=== PATIENT | male | born 1995 | race Asian ===

== ENCOUNTER 2024-04-04 14:23 | Outpatient (AMB) | payer OTHER, SELFPAY ==
--- NOTE | 2024-04-04 14:37 | MHC.PC.OV ---
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 ?? Prior PCP:? No recent PCP Acute issue(s):? Est Care ?? PMHx:? Denies SurgHx:?None FHx:? Mom Healthy Dad Healthy SocHx:? Nonsmoker, EtOH: None. No drugs PFSH Social History (Updated 04/04/24 @ 14:42 by Cali Tolbert [facility]) Housing: House Patient Tobacco Use Status: Never used Tobacco e-Cigarette/Vaping Use: Never Used Second Hand Smoke Exposure: No Use of substances other than those prescribed or required for medical reasons: No service: No Current occupational status: employed Current occupation: [employer] Current occupational exposures/hazards: No Cognitive needs: No Hearing needs: No Vision needs: No Questionnaire PHQ-9 Over the last 2 weeks, how often have you been bothered by any of the following problems? 1. Little interest or pleasure in doing things: not at all 2. Feeling down, depressed, or hopeless: not at all 3. Trouble falling or staying asleep, or sleeping too much: not at all 4. Feeling tired or having little energy: not at all 5. Poor appetite or overeating: not at all 6. Feeling bad about yourself - or that you are a failure or have let yourself or your family down: not at all 7. Trouble concentrating on things, such as reading the newspaper or watching television: not at all 8. Moving or speaking so slowly that other people could have noticed. Or the opposite - being so fidgety or restless that you have been moving around a lot more than usual: not at all 9. Thoughts that you would be better off or of hurting yourself in some way: not at all Total score: 0 Depression Screening Interpretation: Negative Depression Screening Done: Yes 20320 - PHQ-9 Billing: Yes Source: Developed by Drs. Ruel Davidson, Lavinia Galan, Carter Hu and colleagues, with an educational isidro from [employer]. Thrive Questionnaire Date Thrive assessed: 04/04/24 I am a: Patient What is your living situation today?: I have a steady place to live Within the past 12 months, did the food you bought not last and you didn't have the money to get more?: Never true Within the past 12 months, did you worry whether your food would run out before you got money to buy more?: Never true Do you have trouble paying for medicines?: No Do you have trouble getting transportation to medical appointments?: No Do you have trouble paying your heating and electricity bill?: No Do you have trouble taking care of your child, family member or friend?: No Do you have trouble with day-to-day activities such as bathing, preparing meals, shopping, managing finances, etc.?: No Are you currently unemployed and looking for a job?: No Are you interested in more education?: No Please select the resources that you would like help with: None Currently or been in a relationship where the following occur: No concerns reported THRIVE Score: 0 AUDIT C Alcohol Use Questionnaire (AUDIT-C) 1. How often do you have a drink containing alcohol?: Never 3. How often do you have six or more drinks on one occasion?: Never Total Score: 0 ROB-7 AMB Questionnaire ROB-7 Date ROB - 7 assessed: 04/04/24 Feeling nervous, anxious, or on edge: 0 = Not at all Not being able to stop or control worryin = Not at all Worrying too much about different things: 0 = Not at all Trouble relaxin = Not at all Being so restless that it is hard to sit still: 0 = Not at all Becoming easily annoyed or irritable: 0 = Not at all Feeling afraid as if something awful might happen: 0 = Not at all Total ROB-7 score (0-4 normal; 5-9 mild; 10-14 moderate; 15-21 severe): 0 Source: Developed by Drs. Ruel Davidson, Lavinia Galan, Carter Hu and colleagues, with an educational isidro from [employer]. ROB-7 Assessment Billing ROB-7 Assessment Tool: ROB-7 Assessment 47597 Review of Systems Const Denies chills, Denies fatigue, Denies fever(s), Denies headache(s) and Denies weakness Eyes Denies change in vision ENT Denies dizziness and Denies headache(s) Card Denies chest pain, Denies lightheadedness, Denies dyspnea and Denies other (Palpitations) Resp Denies cough, Denies dyspnea, Denies wheezing and Denies other ( shortness of breath) GI Denies abdominal pain, Denies melena, Denies hematochezia, Denies change in bowel habits, Denies dyspepsia and Denies nausea Denies hematuria and Denies dysuria Musc Denies numbness and Denies tingling Skin/Breast Denies rash, Denies unusual bruising and Denies wounds Neuro Denies dizziness, Denies headache(s), Denies numbness, Denies Sensory deficit (Neuro), Denies tingling, Denies paresthesias and Denies weakness Psych Denies anxiety and Denies depression Endo Denies fatigue Bob/Lymph Denies easy bleeding and Denies easy bruising Aller/Immun Denies wheezing Physical exam (Primary Care) Vital Signs: Last Vital Signs Pulse 67 04/04/24 14:43 Resp 16 04/04/24 14:43 BP 110/70 04/04/24 14:43 Pulse Ox 98 04/04/24 14:43 Oxygen Delivery Method Room Air 04/04/24 14:43 BMI result Body Mass Index 26.7 Tobacco/Smoking Status: Tobacco use Status Tobacco use date assessed 04/04/24 04/04/24 14:46 Patient Tobacco Use Status Never used Tobacco 04/04/24 14:46 e-Cigarette/Vaping Use Never Used 04/04/24 14:46 PHQ-9: PHQ-9 Score PHQ-9: Total score 0 04/04/24 14:52 Depression Screening Interpretation: Negative Thrive Assessment: Date of Thrive Assessment Date Thrive assessed 04/04/24 04/04/24 14:46 Currently or been in a relationship where the following occur: No concerns reported Const General: no acute distress and well developed Nutritional Appearance: well nourished Orientation/consciousness: patient oriented x3 [facility] Head: Yes normocephalic and Yes atraumatic Ears: hearing grossly normal bilaterally and TM's normal bilaterally General nose exam: Normal external nose present and Normal nares present Mouth: Normal oral and palatal mucosa present and moist mucous membranes Teeth and gingiva: dentition normal Throat: Yes posterior oropharynx normal Eyes General: appearance normal, both eyes and all related structures Pupils: Equal, round and reactive pupils present EOM: EOMs intact bilaterally Neck Neck: Yes normal visual inspection, Yes no lymphadenopathy and Yes trachea midline Thyroid: Thyroid normal Carotids: no bruits Lymphatic: no lymphadenopathy noted Chest Chest palpation & inspection: normal inspection of the chest Resp Effort & Inspection: normal respiratory effort Auscultation: clear to auscultation bilaterally Cardio Rate: regular rate Rhythm: regular rhythm Heart sounds: S1 normal heart sound present, S2 normal heart sound present, no gallops, no murmurs and no rubs Bruits: no abdominal aortic bruits and no carotid bruits GI Palpation (GI): No Abdominal aortic bruit present, Soft to palpation, nontender, No hepatosplenomegaly present and No Rebound tenderness present Auscultation: normal bowel sounds General: Yes no CVA tenderness Back/Spine/Pelvis Back: no CVA tenderness Cervical Spine: cervical ROM normal and No Cervical spine tenderness Thoracic/Lumbar Spine: thoraco-lumbar ROM normal, No pain with thoraco-lumbar ROM, No thoracic spinal tenderness and No lumbar spinal tenderness Skin Lesions: no lesions Rashes: no rashes Trauma: no lacerations or abrasions Wounds: no wounds Nails: normal Neuro General: patient oriented x3 and gait normal Cranial nerves: Yes Equal, round and reactive pupils present Cognition (Neuro): normal cognition Gait exam (Neuro): Normal gait present Motor exam (neuro): 5/5 motor strength present throughout Sensory Exam: No Sensory deficit (Neuro) Deep tendon reflexes (DTR's): Right patellar reflex intensity grade: 2+ and Left patellar reflex intensity grade: 2+ Extrem General: Yes normal to inspection and No edema Psych Appearance: grossly normal Affect: normal affect Attitude: cooperative Thought process: Normal thought process present Coding Level of Care Code New Pt Level 3 (79620) Est Pt Prev Care 18-39y(96873) Diagnoses Adult general medical examination Z00.00 Additional Codes ROB-7 Assessment Billing - ROB-7 Assessment Tool: ROB-7 Assessment 41871 ([id number]) PHQ-9 - 49895 - PHQ-9 Billing: Yes ([id number]) Assessment & Plan Assessment & Plan (1) Adult general medical examination: Code(s): Z00.00 - Encounter for general adult medical examination without abnormal findings Category: Medical Plan: 28-year-old?male?presents?as?new?patient?for?complete?physical?exam Exam?all?within?normal?limits Encouraged?healthy?diet?with?active?lifestyle?and?plenty?of?exercise Orders: Orders Microalbumin, Random (w Creat) Today I10 - Essential (primary) hypertension TSH reflex Free T4 Today Z00.00 - Encounter for general adult medical examination without abnormal findings UA and rflx microscopic Today Z00.00 - Encounter for general adult medical examination without abnormal findings Hepatitis B,C Profile Today Z11.3 - Encounter for screening for infections with a predominantly sexual mode of transmission Syphilis Screen Today Z11.3 - Encounter for screening for infections with a predominantly sexual mode of transmission Comprehensive [place]. Panel Fast Today Z00.00 - Encounter for general adult medical examination without abnormal findings Lipid Panel Today Z00.00 - Encounter for general adult medical examination without abnormal findings CT NG by PCR Today Z11.3 - Encounter for screening for infections with a predominantly sexual mode of transmission HIV Ab/Ag Today Z11.3 - Encounter for screening for infections with a predominantly sexual mode of transmission
[2024-04-04 14:43] VITALS: BP 110/70; PULSE 67; RESP 16; O2SAT 98; BMI 26.7
== END 2024-04-04 15:11 | disposition home or self-care (01) ==
PROVIDERS: PCP Family Medicine; Visit Provider Family Medicine
DX: Z00.00 Encounter for general adult medical examination without abnormal findings (principal)

== ENCOUNTER → 2024-04-04 14:23 | Outpatient (BNVA) | payer OTHER, SELFPAY | PROVIDERS: PCP Family Medicine; Visit Provider Family Medicine | DX: Z00.00 Encounter for general adult medical examination without abnormal findings (principal) | CPT/HCPCS: 96127 ==

== ENCOUNTER 2024-04-05 15:05 | Outpatient (REF) | payer OTHER, SELFPAY ==
[2024-04-05 18:01] LABS: Appearance Urine Clear; Color Urine Yellow; Glucose Urine UA Negative (Negative); Leukocyte Esterase Urine Negative (Negative); Nitrite Urine Negative (Negative); PH 6.5 (5.0-9.0); Specific Gravity - Urine <= 1.005 (1.005-1.025); Urine Blood Negative (Negative); Urine Ketones Negative (Negative); Urine Protein Negative (Neg-Trace)
[2024-04-05 18:15] LABS: Alanine Aminotransferase 38 U/L (0-40); Albumin Level 4.6 g/dL (3.5-5.0); Alkaline Phosphatase 56 U/L (39-117); Anion Gap 9 (12-20); Aspartate Amino Transferase 37 U/L (5-37); Bilirubin Total 1.6 mg/dL (0.0-1.0); Blood Urea Nitrogen 9 mg/dL (9-16); Calcium 9.2 mg/dL (8.4-10.2); Carbon Dioxide 27 mmol/L (22-29); Chloride 103 mmol/L (96-108); Cholesterol 161 mg/dL (<200); Estimated Glomerular Filt Rate > 60; Glucose Fasting 93 mg/dL (60-99); HDL Cholesterol 53 mg/dL (>40); LDL Cholesterol Calculated 96 mg/dL (<100); Potassium 3.8 mmol/L (3.3-5.1); Sodium 135 mmol/L (135-145); Total Protein 7.1 g/dL (6.5-8.0); Triglycerides 64 mg/dL (<150)
[2024-04-05 18:21] LABS: Microalbumin Urine < 5.0 mg/L
[2024-04-05 18:29] LABS: TSH reflex Free T4 1.09 uIU/mL (0.32-4.0)
[2024-04-06 08:21] LABS: HBS Num1 0.18 mIU/mL (0-7.99); HBc Num1 0.09 S/CO (0.00-0.79); HBsAGNum1 0.53 S/CO (0.00-0.99); HIV AB/AG Nonreactive (Nonreactive); HIV Num 1 0.08 S/CO (0.00-0.99); Hepatitis B Core Antibody Nonreactive (Nonreactive); Hepatitis B Surface Antigen Negative (Negative); ~HepC Num1 0.11 S/CO (0.00-0.79); ~Hepatitis B Surface Antibody NONREACTIVE (Nonreactive); ~Hepatitis C Antibody Nonreactive (Nonreactive)
[2024-04-06 08:36] LABS: Syphilis Screen Nonreactive (Nonreactive)
== END 2024-04-05 15:06 | disposition home or self-care (01) ==
LOC: HO.WFDLDS 15:05
PROVIDERS: Visit Provider Family Medicine
DX: Z00.00 Encounter for general adult medical examination without abnormal findings (principal); I10 Essential (primary) hypertension; Z11.3 Encounter for screening for infections with a predominantly sexual mode of transmission
CPT/HCPCS: 36415; 80053; 80061; 81003; 82570; 84443; 86704; 86706; 86780; 86803; 87340; 87389

== ENCOUNTER 2024-05-05 13:22 | Outpatient (REF) | payer OTHER, SELFPAY ==
[2024-05-05 19:02] LABS: Influenza A PCR NEGATIVE (Negative); Influenza B PCR NEGATIVE (Negative); Resp Syncy Virus RNA Qual PCR NEGATIVE (Negative); SARS COV2 PCR INHOUSE NEGATIVE (Negative)
== END 2024-05-05 13:23 | disposition home or self-care (01) ==
LOC: HO.LAB 13:22
PROVIDERS: PCP Family Medicine; Visit Provider Family Medicine
DX: J40 Bronchitis, not specified as acute or chronic (principal); B34.9 Viral infection, unspecified
CPT/HCPCS: 0241U

== ENCOUNTER 2024-05-05 13:22 | Outpatient (AMB) | payer OTHER, SELFPAY ==
--- NOTE | 2024-05-05 13:32 | MHC.PC.OV ---
Vital Signs 05/05/24 13:34 Height 5 ft 10 in Weight 185 lb 4 oz BMI 26.6 BP 116/62 Blood Pressure Location Rt brachial Position Sitting Respiration 16 Pulse 72 Pulse Source Pulse Oximeter Temp 98.0 F Temp Source Oral Pulse Oximetry (%) 98 Oxygen Delivery Method Room Air Intake Visit Reasons: f/u bloodwork Intake Note: f/u bloodwork Allergies No Known Allergies Allergy (Verified 05/05/24 13:33) Tobacco use date assessed: 04/04/24 Dental Screening Dental Screen Date: 04/04/24 HPI f/u bloodwork HPI Details 28 y/o male presents to f/u labs. Labs drawn 04/05/24. Reviewed labs with pt. Triglycerides 64. TC 161. LDL 96. HDL 53. Labs were fine. [facility] Social History (Updated 04/04/24 @ 14:42 by Cali Tolbert [facility]) Housing: House Patient Tobacco Use Status: Never used Tobacco e-Cigarette/Vaping Use: Never Used Second Hand Smoke Exposure: No service: No Current occupational status: employed Current occupation: [email or web address] Current occupational exposures/hazards: No Cognitive needs: No Hearing needs: No Vision needs: No Questionnaire Thrive Questionnaire Date Thrive assessed: 03/28/24 I am a: Patient What is your living situation today?: I have a steady place to live Within the past 12 months, did the food you bought not last and you didn't have the money to get more?: Never true Within the past 12 months, did you worry whether your food would run out before you got money to buy more?: Never true Do you have trouble paying for medicines?: No Do you have trouble getting transportation to medical appointments?: No Do you have trouble paying your heating and electricity bill?: No Do you have trouble taking care of your child, family member or friend?: No Do you have trouble with day-to-day activities such as bathing, preparing meals, shopping, managing finances, etc.?: No Are you currently unemployed and looking for a job?: No Are you interested in more education?: No Please select the resources that you would like help with: None Currently or been in a relationship where the following occur: No concerns reported THRIVE Score: 0 ROB-7 AMB Questionnaire RBO-7 Date ROB - 7 assessed: 04/04/24 Source: Developed by Drs. Ruel Davidson, Lavinia Galan, Carter Hu and colleagues, with an educational isidro from [employer]. Review of Systems Const Denies chills, Denies fatigue, Denies fever(s), Denies headache(s) and Denies weakness ENT Denies dizziness and Denies headache(s) Card Denies chest pain, Denies lightheadedness, Denies dyspnea and Denies other (Palpitations) Resp Denies cough, Denies dyspnea, Denies wheezing and Denies other ( shortness of breath) Musc Denies numbness and Denies tingling Neuro Denies dizziness, Denies headache(s), Denies numbness, Denies tingling, Denies paresthesias and Denies weakness Psych Denies anxiety and Denies depression Endo Denies fatigue Aller/Immun Denies wheezing Physical exam (Primary Care) Vital Signs: Last Vital Signs Temp 98.0 F 05/05/24 13:34 Pulse 72 05/05/24 13:34 Resp 16 05/05/24 13:34 BP 116/62 05/05/24 13:34 Pulse Ox 98 05/05/24 13:34 Oxygen Delivery Method Room Air 05/05/24 13:34 BMI result Body Mass Index 26.6 Tobacco/Smoking Status: Tobacco use Status Tobacco use date assessed 04/04/24 05/05/24 13:37 Patient Tobacco Use Status Never used Tobacco 05/05/24 13:37 e-Cigarette/Vaping Use Never Used 05/05/24 13:37 Thrive Assessment: Date of Thrive Assessment Date Thrive assessed 03/28/24 05/05/24 13:37 Currently or been in a relationship where the following occur: No concerns reported Const General: no acute distress and well developed Nutritional Appearance: well nourished Orientation/consciousness: patient oriented x3 [facility] Head: Yes normocephalic and Yes atraumatic Eyes General: appearance normal, both eyes and all related structures Pupils: Equal, round and reactive pupils present EOM: EOMs intact bilaterally Resp Effort & Inspection: normal respiratory effort Auscultation: clear to auscultation bilaterally Cardio Rate: regular rate Rhythm: regular rhythm Heart sounds: S1 normal heart sound present, S2 normal heart sound present, no gallops, no murmurs and no rubs Neuro General: patient oriented x3 and gait normal Cranial nerves: Yes Equal, round and reactive pupils present Psych Affect: normal affect Coding Level of Care Code Est Pt Level 3 (84647) Diagnoses Bronchitis J40 Assessment & Plan Assessment & Plan (1) Bronchitis: Code(s): J40 - Bronchitis, not specified as acute or chronic Category: Medical Plan: Will?give?him?a?Z-Kenji?and?short?course?of?prednisone He?can?call?or?return?to?office?if?not?improving?or?worsens Plan Reviewed?all?labs?with?patient?today?and?all?are?okay Orders: Orders Comprehensive [place]. Panel Fast 10 Months Z00.00 - Encounter for general adult medical examination without abnormal findings Lipid Panel 10 Months Z00.00 - Encounter for general adult medical examination without abnormal findings Microalbumin, Random (w Creat) 10 Months I10 - Essential (primary) hypertension TSH reflex Free T4 10 Months Z00.00 - Encounter for general adult medical examination without abnormal findings UA and rflx microscopic 10 Months Z00.00 - Encounter for general adult medical examination without abnormal findings
[2024-05-05 13:34] VITALS: BP 116/62; PULSE 72; RESP 16; TEMP 36.7; O2SAT 98; BMI 26.6
== END 2024-05-05 13:54 | disposition home or self-care (01) ==
PROVIDERS: PCP Family Medicine; Visit Provider Family Medicine
DX: J40 Bronchitis, not specified as acute or chronic (principal)

== ENCOUNTER 2024-05-26 09:51 | Outpatient (AMB) | payer OTHER, SELFPAY ==
[2024-05-26 09:59] VITALS: BP 122/72; PULSE 65; O2SAT 99; BMI 26.3
--- NOTE | 2024-05-26 09:59 | A.OFFVIS_ITS ---
Vital Signs 05/26/24 09:59 Height 5 ft 10 in Weight 182 lb 15.739 oz BMI 26.3 BP 122/72 Blood Pressure Location Lt brachial Position Sitting Pulse 65 Pulse Source Pulse Oximeter Pulse Oximetry (%) 99 Oxygen Delivery Method Room Air Intake Visit Reasons: bronchitis/cough Intake Note: pt is here for a lingering cough,mostly dry, since bronchitis dx and this has been happening for 3 weeks. 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 HE DID HAVE A NONSPECIFIC UPPER RESPIRATORY INFECTION ABOUT 3 WEEKS AGO, VIRAL . HE WAS SEEN IN HIS PCPS OFFICE AND EMPIRICALLY TREATED WITH A SHORT COURSE OF PREDNISONE AND Z-SELMA, WHILE HIS ACUTE SYMPTOMS RESOLVED IN ABOUT 1 WEEK'S TIME HE CONTINUES TO HAVE DRY COUGH, WITH TALKING, LAUGHING, OR DOING ANY PHYSICAL WORK. SOMETIMES THE COUGH IS IN SPASMS ENDING WITH SOME WHEEZING. HE ADMITS THAT THE COUGH IS GRADUALLY GETTING LESS. [facility] Medical History (Updated 05/26/24 @ 10:27 by Mary Bravo MD) Cough Social History Housing: House Patient Tobacco Use Status: Never used Tobacco e-Cigarette/Vaping Use: Never Used Second Hand Smoke Exposure: No service: No Current occupational status: employed Current occupation: [employer] Current occupational exposures/hazards: No Cognitive needs: No Hearing needs: No Vision needs: No Review of Systems Const All systems reviewed & are unremarkable except as noted in HPI and below Eyes Reports no additional complaints ENT Reports no additional complaints Card Reports no additional complaints Resp Reports as per HPI GI Denies heartburn Reports no additional complaints Musc Reports no additional complaints Skin/Breast Reports system reviewed and no additional complaints, except as documented Neuro Reports no additional complaints Psych Reports no additional complaints Physical Exam Vital Signs: Last Vital Signs Pulse 65 05/26/24 09:59 BP 122/72 05/26/24 09:59 Pulse Ox 99 05/26/24 09:59 Oxygen Delivery Method Room Air 05/26/24 09:59 BMI result Body Mass Index 26.3 Const General: healthy appearing, comfortable, no acute distress, alert and awake Orientation/consciousness: patient oriented x3 HE[place] Head: Yes normal to inspection General nose exam: No nasal polyps present and No nasal discharge present Face and sinus: Yes sinuses nontender Mouth: oropharynx normal (NO REDNESS ULCERS OR EXUDATES NOTED) Throat: Yes posterior oropharynx normal Eyes General: appearance normal, both eyes and all related structures Neck Neck: Yes normal visual inspection, Yes no lymphadenopathy, Yes trachea midline and Yes no JVD Thyroid: Thyroid normal Chest Chest palpation & inspection: normal inspection of the chest, normal palpation of entire chest wall and no tenderness Resp Other: PERCUSSION NOTE IS NORMAL BREATH SOUNDS ARE EQUAL ON BOTH SIDES AND NORMAL. .NO WHEEZES OR RHONCHI ARE HEARD HE DOES GET COUGH. ON TAKING DEEP BREATH Cardio Palpation: normal PMI Rate: regular rate Rhythm: regular rhythm Heart sounds: no gallops and no murmurs Peripheral pulses: Peripheral pulses 2+ throughout GI Palpation (GI): Soft to palpation, nontender, No hepatosplenomegaly present and no masses Auscultation: normal bowel sounds Back/Spine/Pelvis Thoracic/Lumbar Spine: thoracic and lumbar spine normal to inspection Skin General skin exam: no rashes or lesions noted Neuro General: patient oriented x3 and no focal motor deficits Cranial nerves: Yes CN's II-XII intact bilaterally Extrem General: Yes normal to inspection, Yes no clubbing, cyanosis or edema and Yes no calf tenderness Psych Appearance: grossly normal and well kempt Speech and movement: Normal speech and movement present Assessment & Plan Assessment & Plan (1) Viral illness: Comment: HE HAS HAD HE NONSPECIFIC VIRAL UPPER RESPIRATORY INFECTION SINCE A FEW WEEKS AGO, WHICH HAS RESOLVED. SCREENING FOR RSV AND COVID WAS NEGATIVE. Code(s): B34.9 - Viral infection, unspecified Category: Medical Plan: NO ACTIVE TREATMENT NEEDED AT THIS TIME (2) Bronchitis: Comment: IT STARTED WITH NONSPECIFIC VIRAL BRONCHITIS, CAUSING LOT OF COUGH, WHICH HAS DEFINITELY IMPROVED. Code(s): J40 - Bronchitis, not specified as acute or chronic Category: Medical Plan: CHEST X-RAY ORDERED JUST FOR HIS SATISFACTION AND TO MAKE SURE THERE WAS NO RE SIDUAL INFECTION. (3) Cough: Comment: THE LINGERING COUGH IS SECONDARY TO POSTINFECTIOUS, REACTIVE AIRWAYS. IT CAN LAST FOR 8-12 WEEKS AFTER AN UPPER RESPIRATORY INFECTION, AND IS USUALLY SELF-LIMITING. Code(s): R05.9 - Cough, unspecified Category: Medical Plan: PATIENT AND HIS MOM NEEDED LOT OF REASSURANCE. I HAVE EDUCATED HIM ABOUT. HIS PROCESS OF COUGH PRESCRIBED ICS, TO BE USE FOR A FEW WEEKS. ANRNUITY ELLIPTA ONE INH DAILY . ALBUTEROL HFA 2 PUFFS Q 4-6 HOURS P.R.N. FOR PERSISTENT BOUTS OF COUGH. CALL ME AFTER 2-3 WEEKS, AND WILL DECIDE IF HE NEEDS ANY FOLLOW-UP VISIT Orders: Orders XR chest 2V Today B34.9 - Viral infection, unspecified, J40 - Bronchitis, not specified as acute or chronic Medications: New fluticasone furoate 200 mcg/actuation (Arnuity Ellipta) 1 inh inhalation DAILY 30 ea 1RF COUGH/BRONCHOSPASM 30 days albuterol sulfate 90 mcg/actuation 2 puffs inhalation Q4-6H PRN 6.7 grams 1RF COUGH AND WHEEZING 30 days MDD COUGH AND WHEEZING Coding Level of Care Code Est Pt Level 3 (58348) Diagnoses Viral illness B34.9 Bronchitis J40 Cough R05.9
== END 2024-05-26 10:12 | disposition home or self-care (01) ==
PROVIDERS: PCP Family Medicine; Visit Provider Internal Medicine
DX: B34.9 Viral infection, unspecified (principal); J40 Bronchitis, not specified as acute or chronic; R05.9 Cough, unspecified
CPT/HCPCS: 99213

== ENCOUNTER 2024-05-26 09:51 | Outpatient (REF) | payer OTHER, SELFPAY ==
--- NOTE | ~2024-05-26 | XR_ITS ---
EXAMINATION: XR CHEST CLINICAL INFORMATION: J40 - Bronchitis, not specified as acute or chronic COMPARISON: Chest x-ray 07/12/2015 TECHNIQUE: 2 views of the chest were obtained. FINDINGS: The lungs are hyperinflated but clear acute process. The heart size and pulmonary vascularity is normal. XR/XR chest 2V IMPRESSION: Unremarkable chest examination. Electronically signed by: Adam Doty MD 05/26/2024 03:08 PM [facility]
== END 2024-05-26 09:52 | disposition home or self-care (01) ==
LOC: HO.XRAY 09:51
PROVIDERS: PCP Family Medicine; Visit Provider Internal Medicine
DX: J40 Bronchitis, not specified as acute or chronic (principal); B34.9 Viral infection, unspecified
CPT/HCPCS: 71046

== ENCOUNTER → 2024-05-26 10:25 | Outpatient (BNV) | payer OTHER, SELFPAY | PROVIDERS: PCP Family Medicine; Visit Provider Radiology Diagnostic Radiology | DX: J40 Bronchitis, not specified as acute or chronic (principal) | CPT/HCPCS: 71046 ==

== ENCOUNTER 2024-07-12 11:41 | Outpatient (AMB) | payer OTHER, SELFPAY ==
--- NOTE | 2024-07-12 12:20 | MHC.PC.OV ---
Vital Signs 07/12/24 12:24 Height 5 ft 10 in Weight 188 lb 2 oz BMI 27.0 BP 114/76 Blood Pressure Location Rt brachial Position Sitting Respiration 12 Pulse 75 Pulse Source Pulse Oximeter Temp 98.3 F Temp Source Oral Pulse Oximetry (%) 98 Oxygen Delivery Method Room Air Intake Visit Reasons: jury duty paperwork Intake Note: pt is her to discuss what disqualifications for jury duty [employer] Required: No Allergies No Known Allergies Allergy (Verified 07/12/24 12:24) Medication List - Last Reconciled 07/12/24 by Henry Gao MD albuterol sulfate 90 mcg/actuation 2 puffs inhalation Q4-6H PRN 30 days MDD COUGH AND WHEEZING bupropion HCl 37.5 mg (1/2 x 75 mg) PO BID 30 days fluticasone furoate 200 mcg/actuation (Arnuity Ellipta) 1 inh inhalation DAILY 30 days mometasone 100 mcg/actuation (Asmanex HFA) 2 puffs inhalation BID 30 days Tobacco use date assessed: 04/04/24 Dental Screening Dental Screen Date: 04/04/24 HPI jury duty paperwork HPI Details 28 y/o male presents today for jury duty paperwork. He reports untreated social anxiety. Badge # [id number] [facility] Medical History (Updated 07/12/24 @ 13:08 by Tevin Christensen) Cough Social History Housing: House Patient Tobacco Use Status: Never used Tobacco e-Cigarette/Vaping Use: Never Used Second Hand Smoke Exposure: No service: No Current occupational status: employed Current occupation: [employer] Current occupational exposures/hazards: No Cognitive needs: No Hearing needs: No Vision needs: No Questionnaire PHQ-9 Over the last 2 weeks, how often have you been bothered by any of the following problems? 1. Little interest or pleasure in doing things: not at all 2. Feeling down, depressed, or hopeless: not at all 3. Trouble falling or staying asleep, or sleeping too much: not at all 4. Feeling tired or having little energy: not at all 5. Poor appetite or overeating: not at all 6. Feeling bad about yourself - or that you are a failure or have let yourself or your family down: not at all 7. Trouble concentrating on things, such as reading the newspaper or watching television: not at all 8. Moving or speaking so slowly that other people could have noticed. Or the opposite - being so fidgety or restless that you have been moving around a lot more than usual: not at all 9. Thoughts that you would be better off or of hurting yourself in some way: not at all Total score: 0 Source: Developed by Drs. Ruel Davidson, Lavinia Galan, Carter Hu and colleagues, with an educational isidro from [employer] [facility]. Thrive Questionnaire Date Thrive assessed: 03/28/24 I am a: Patient What is your living situation today?: I have a steady place to live Within the past 12 months, did the food you bought not last and you didn't have the money to get more?: Never true Within the past 12 months, did you worry whether your food would run out before you got money to buy more?: Never true Do you have trouble paying for medicines?: No Do you have trouble getting transportation to medical appointments?: No Do you have trouble paying your heating and electricity bill?: No Do you have trouble taking care of your child, family member or friend?: No Do you have trouble with day-to-day activities such as bathing, preparing meals, shopping, managing finances, etc.?: No Are you currently unemployed and looking for a job?: No Are you interested in more education?: No Please select the resources that you would like help with: None Currently or been in a relationship where the following occur: No concerns reported THRIVE Score: 0 AUDIT C Alcohol Use Questionnaire (AUDIT-C) 1. How often do you have a drink containing alcohol?: Never Total Score: 0 ROB-7 AMB Questionnaire ROB-7 Date ROB - 7 assessed: 04/04/24 Feeling nervous, anxious, or on edge: 0 = Not at all Not being able to stop or control worryin = Not at all Worrying too much about different things: 0 = Not at all Trouble relaxin = Not at all Being so restless that it is hard to sit still: 0 = Not at all Becoming easily annoyed or irritable: 0 = Not at all Feeling afraid as if something awful might happen: 0 = Not at all Total ROB-7 score (0-4 normal; 5-9 mild; 10-14 moderate; 15-21 severe): 0 Source: Developed by Drs. Ruel Davidson, Lavinia Galan, Carter Hu and colleagues, with an educational isidro from [employer] [facility]. Review of Systems Psych Reports anxiety Physical exam (Primary Care) Vital Signs: Last Vital Signs Temp 98.3 F 07/12/24 12:24 Pulse 75 07/12/24 12:24 Resp 12 07/12/24 12:24 BP 114/76 07/12/24 12:24 Pulse Ox 98 07/12/24 12:24 Oxygen Delivery Method Room Air 07/12/24 12:24 BMI result Body Mass Index 27.0 Tobacco/Smoking Status: Tobacco use Status Tobacco use date assessed 04/04/24 07/12/24 12:22 Patient Tobacco Use Status Never used Tobacco 07/12/24 12:22 e-Cigarette/Vaping Use Never Used 07/12/24 12:22 PHQ-9: PHQ-9 Score PHQ-9: Total score 0 07/12/24 12:22 Thrive Assessment: Date of Thrive Assessment Date Thrive assessed 03/28/24 07/12/24 12:22 Currently or been in a relationship where the following occur: No concerns reported Coding Level of Care Code Est Pt Level 3 (89150) Diagnoses Anxiety F41.9 Assessment & Plan Assessment & Plan (1) Anxiety: Code(s): F41.9 - Anxiety disorder, unspecified Category: Medical Plan: Patient?has?anxiety?in?social?situations. Will?have?him?try?bupropion Also?discussed?that?he?may?benefit?from?a?therapist. He?declined?this?for?now?but?would?like?to?try?bupropion. Start?bupropion?37.5?mg?b.i.d. He?has?appointment?for?his?physical?later?this?year.??Call?or?return?to?office?sooner?if?having?ongoing?problems. Patient?notes?that?he?was?called?for?jury?duty?and?got?and?extension.??He?will?let?me?know?if?he?is?contacted?again?and?I?can?write?a?letter?to excuse?him?from?jury?duty. Medications: New bupropion HCl 37.5 mg (1/2 x 75 mg) PO BID 30 days 30 tabs 3RF
[2024-07-12 12:24] VITALS: BP 114/76; PULSE 75; RESP 12; TEMP 36.8; O2SAT 98; BMI 27.0
== END 2024-07-12 16:00 | disposition home or self-care (01) ==
PROVIDERS: PCP Family Medicine; Visit Provider Family Medicine
DX: F41.9 Anxiety disorder, unspecified (principal)

== ENCOUNTER → 2024-07-12 11:41 | Outpatient (BNVA) | payer OTHER, SELFPAY | PROVIDERS: PCP Family Medicine; Visit Provider Family Medicine ==

== ENCOUNTER 2025-05-09 14:37 | Outpatient (AMB) | payer OTHER, SELFPAY ==
--- NOTE | 2025-05-09 14:41 | A.OFFPC_ITS ---
Vital Signs 05/09/25 14:46 Height 5 ft 10 in Weight 179 lb 6 oz BMI 25.7 BP 114/70 Blood Pressure Location Rt brachial Position Sitting Respiration 12 Pulse 68 Pulse Source Pulse Oximeter Temp 97.3 F Temp Source Temporal Artery Scan Pulse Oximetry (%) 99 Oxygen Delivery Method Room Air Intake Visit Reasons: CPE with f/u labs and health maint - see comments Intake Note: Jonathan presents in the office today for his annual physical and a follow up to his lab results. Medical Records Director Required: No Allergies No Known Allergies Allergy (Verified 05/09/25 14:42) Tobacco use date assessed: 05/09/25 Dental Screening Dental Screen Date: 05/09/25 Did you have a dental visit in the last 12 months?: Yes Did you have a dental problem in the last 6 months where you did not have access to dental care?: No Was dental information given to patient?: Patient has dentist HPI CPE with f/u labs and health maint - see comments HPI Details 29 y/o male presents for a CPE with f.u labs. No recent labs to review. Hx of anxiety. PHQ-9/ROB-7 negative today. [facility] Medical History (Updated 07/12/24 @ 13:08 by Tevin Christensen) Cough Social History (Updated 05/09/25 @ 14:45 by Shraddha Santos [facility]) Housing: House Alcohol intake: never Patient Tobacco Use Status: Never used Tobacco e-Cigarette/Vaping Use: Never Used Second Hand Smoke Exposure: No service: No Current occupational status: employed Current occupation: [employer] Current occupational exposures/hazards: No Cognitive needs: No Hearing needs: No Vision needs: No Questionnaire PHQ-9 Over the last 2 weeks, how often have you been bothered by any of the following problems? 1. Little interest or pleasure in doing things: not at all 2. Feeling down, depressed, or hopeless: not at all 3. Trouble falling or staying asleep, or sleeping too much: not at all 4. Feeling tired or having little energy: not at all 5. Poor appetite or overeating: not at all 6. Feeling bad about yourself - or that you are a failure or have let yourself or your family down: not at all 7. Trouble concentrating on things, such as reading the newspaper or watching television: not at all 8. Moving or speaking so slowly that other people could have noticed. Or the opposite - being so fidgety or restless that you have been moving around a lot more than usual: not at all 9. Thoughts that you would be better off or of hurting yourself in some way: not at all Total score: 0 Depression Screening Interpretation: Negative Depression Screening Done: Yes [id number] - PHQ-9 Billing: Yes Source: Developed by Drs. Ruel Davidson, Lavinia Galan, Carter Hu and colleagues, with an educational isidro from [employer]. Thrive Questionnaire Date Thrive assessed: 05/09/25 I am a: Patient What is your living situation today?: I have a steady place to live Within the past 12 months, did the food you bought not last and you didn't have the money to get more?: Never true Within the past 12 months, did you worry whether your food would run out before you got money to buy more?: Never true Do you have trouble paying for medicines?: No Do you have trouble getting transportation to medical appointments?: No Do you have trouble paying your heating and electricity bill?: No Do you have trouble taking care of your child, family member or friend?: No Do you have trouble with day-to-day activities such as bathing, preparing meals, shopping, managing finances, etc.?: No Are you currently unemployed and looking for a job?: No Are you interested in more education?: No Currently or been in a relationship where the following occur: No concerns reported THRIVE Score: 0 AUDIT C Alcohol Use Questionnaire (AUDIT-C) 1. How often do you have a drink containing alcohol?: Never 3. How often do you have six or more drinks on one occasion?: Never Total Score: 0 ROB-7 AMB Questionnaire ROB-7 Date ROB - 7 assessed: 05/09/25 Feeling nervous, anxious, or on edge: 0 = Not at all Not being able to stop or control worryin = Not at all Worrying too much about different things: 0 = Not at all Trouble relaxin = Not at all Being so restless that it is hard to sit still: 0 = Not at all Becoming easily annoyed or irritable: 0 = Not at all Feeling afraid as if something awful might happen: 0 = Not at all Total ROB-7 score (0-4 normal; 5-9 mild; 10-14 moderate; 15-21 severe): 0 Source: Developed by Drs. Ruel Davidson, Lavinia Galan, Carter Hu and colleagues, with an educational isidro from [employer]. ROB-7 Assessment Billing ROB-7 Assessment Tool: ROB-7 Assessment 52521 Review of Systems Const Denies chills, Denies fatigue, Denies fever(s), Denies headache(s) and Denies weakness Eyes Denies change in vision ENT Denies dizziness, Denies headache(s), Denies hearing loss, Denies nasal congestion, Denies sinus pain, Denies sinus pressure and Denies sore throat Card Denies chest pain, Denies lightheadedness, Denies dyspnea and Denies other (palpitations) Resp Denies cough, Denies dyspnea and Denies wheezing GI Denies abdominal pain, Denies melena, Denies hematochezia, Denies change in bowel habits, Denies dyspepsia and Denies nausea Denies hematuria and Denies dysuria Musc Denies abnormal gait, Denies myalgias, Denies arthralgias, Denies numbness and Denies tingling Skin/Breast Denies rash, Denies unusual bruising and Denies wounds Neuro Denies abnormal gait, Denies dizziness, Denies headache(s), Denies memory loss, Denies numbness, Denies Sensory deficit (Neuro), Denies tingling and Denies weakness Psych Denies anxiety, Denies depression and Denies memory loss Endo Denies cold intolerance, Denies fatigue, Denies heat intolerance, Denies polydipsia and Denies polyuria Bob/Lymph Denies easy bleeding and Denies easy bruising Aller/Immun Denies wheezing Physical exam (Primary Care) Vital Signs: Last Vital Signs Temp 97.3 F 05/09/25 14:46 Pulse 68 05/09/25 14:46 Resp 12 05/09/25 14:46 BP 114/70 05/09/25 14:46 Pulse Ox 99 05/09/25 14:46 Oxygen Delivery Method Room Air 05/09/25 14:46 BMI result Body Mass Index 25.7 Tobacco/Smoking Status: Tobacco use Status Tobacco use date assessed 05/09/25 05/09/25 14:48 Patient Tobacco Use Status Never used Tobacco 05/09/25 14:48 e-Cigarette/Vaping Use Never Used 05/09/25 14:48 PHQ-9: PHQ-9 Score PHQ-9: Total score 0 05/09/25 15:21 Depression Screening Interpretation: Negative Thrive Assessment: Date of Thrive Assessment Date Thrive assessed 05/09/25 05/09/25 14:48 Currently or been in a relationship where the following occur: No concerns reported Const General: no acute distress, well developed, alert and awake Nutritional Appearance: well nourished Orientation/consciousness: patient oriented x3 HENMT Head: Yes normocephalic and Yes atraumatic Ears: hearing grossly normal bilaterally and TM's normal bilaterally General nose exam: Normal external nose present and Normal nares present Mouth: Normal oral and palatal mucosa present and moist mucous membranes Teeth and gingiva: dentition normal Throat: Yes posterior oropharynx normal Eyes General: appearance normal, both eyes and all related structures Pupils: Equal, round and reactive pupils present and Pupil accommodation reflex normal EOM: EOMs intact bilaterally Neck Neck: Yes normal visual inspection, Yes no lymphadenopathy and Yes trachea midline Thyroid: Thyroid normal Carotids: no bruits Lymphatic: no lymphadenopathy noted Chest Chest palpation & inspection: normal inspection of the chest Resp Effort & Inspection: normal respiratory effort Auscultation: clear to auscultation bilaterally Cardio Rate: regular rate Rhythm: regular rhythm Heart sounds: S1 normal heart sound present, S2 normal heart sound present, no gallops, no murmurs and no rubs Bruits: no abdominal aortic bruits and no carotid bruits GI Palpation (GI): No Abdominal aortic bruit present, Soft to palpation, nontender, No hepatosplenomegaly present and No Rebound tenderness present Auscultation: normal bowel sounds General: Yes no CVA tenderness Back/Spine/Pelvis Back: no CVA tenderness Cervical Spine: cervical ROM normal and No Cervical spine tenderness Thoracic/Lumbar Spine: thoraco-lumbar ROM normal, No pain with thoraco-lumbar ROM, No thoracic spinal tenderness and No lumbar spinal tenderness Skin Lesions: no lesions Rashes: no rashes Trauma: no lacerations or abrasions Wounds: no wounds Nails: normal Neuro General: patient oriented x3 Cranial nerves: Yes Equal, round and reactive pupils present Cognition (Neuro): normal cognition Gait exam (Neuro): Normal gait present Motor exam (neuro): 5/5 motor strength present throughout Sensory Exam: No Sensory deficit (Neuro) Deep tendon reflexes (DTR's): Right patellar reflex intensity grade: 2+ and Left patellar reflex intensity grade: 2+ Extrem General: Yes normal to inspection and No edema Psych Appearance: grossly normal Affect: normal affect Attitude: cooperative Thought process: Normal thought process present Coding Level of Care Code Est Pt Level 3 (51116) Est Pt Prev Care 18-39y(14847) Diagnoses Adult general medical examination Z00.00 Anxiety F41.9 Additional Codes ROB-7 Assessment Billing - ROB-7 Assessment Tool: ROB-7 Assessment 44616 ([id number]) PHQ-9 - 93163 - PHQ-9 Billing: Yes ([id number]) Assessment & Plan Assessment & Plan (1) Adult general medical examination: Code(s): Z00.00 - Encounter for general adult medical examination without abnormal findings Category: Medical Plan: 29-year-old male presents for complete physical exam Exam WNL except as described below (2) Anxiety: Code(s): F41.9 - Anxiety disorder, unspecified Category: Medical Plan: Significant anxiety, particularly in social situations. Patient has again been called for jury duty Date is October 04, 2025 Badge# [id number] Will write letter to excuse patient from jury service Orders: Orders Lipid Panel Today Z00.00 - Encounter for general adult medical examination without abnormal findings TSH reflex Free T4 Today Z00.00 - Encounter for general adult medical examination without abnormal findings UA CC w/rflx Micro + Cult Today Z00.00 - Encounter for general adult medical examination without abnormal findings Vitamin D 25-OH Total Today E55.9 - Vitamin D deficiency, unspecified Comprehensive [place]. Panel Fast Today Z00.00 - Encounter for general adult medical examination without abnormal findings Complete Blood Count Auto Diff Today Z00.00 - Encounter for general adult medical examination without abnormal findings
[2025-05-09 14:46] VITALS: BP 114/70; PULSE 68; RESP 12; TEMP 36.3; O2SAT 99; BMI 25.7
== END 2025-05-09 15:33 | disposition home or self-care (01) ==
LOC: HO.HMCFM 14:38
PROVIDERS: PCP Family Medicine; Visit Provider Family Medicine
DX: Z00.00 Encounter for general adult medical examination without abnormal findings (principal); F41.1 Generalized anxiety disorder

== ENCOUNTER → 2025-05-09 14:37 | Outpatient (BNVA) | payer OTHER, SELFPAY | PROVIDERS: PCP Family Medicine; Visit Provider Family Medicine | DX: Z00.00 Encounter for general adult medical examination without abnormal findings (principal); F41.9 Anxiety disorder, unspecified; Z13.31 Encounter for screening for depression; Z13.39 Encounter for screening examination for other mental health and behavioral disorders; E55.9 Vitamin D deficiency, unspecified | CPT/HCPCS: 96127 ==